=== PATIENT | female | born 1975 | race Caucasian/White ===

== ENCOUNTER 2016-12-06 19:13 | Emergency (ER) | payer OTHER ==
[~2016-12-06] VITALS: Ht 165.1 cm; Wt 133.8 kg
[~2016-12-06 19:13] MED LIST: CHANTIX0.5 MG PO; CYCLOBENZAPRINE10 MG PO; IBUPROFEN800 MG PO; LISINOPRIL20 MG PO; MELATONIN10 M2 PO; NORCO 10-325 T1 EACH PO; NORCO 5-325 TA1 EACH PO; SIMVASTATIN10 MG PO
--- NOTE | 2016-12-07 07:00 | EKG ---
[facility] [address] [facility] [place] [address] Signed Normal sinus rhythm Normal ECG No previous ECGs available Confirmed by GERMAINE MEJIA MD ([id number] on 12/07/2016 7:00:30 AM Electronically Signed By: GERMAINE MEJIA MD 12/07/16 0700 PATIENT NAME: AJIT SUÁREZ SIDNEY Electrocardiogram DATE OF : 77 PHYSICIAN: GERMAINE MEJIA MD REPORT #: [id number] REPORT IS CONFIDENTIAL AND NOT TO BE RELEASED WITHOUT AUTHORIZATION
== END 2016-12-06 21:40 | disposition home or self-care (01) ==
LOC: ED 19:13
DX: T67.5XXA Heat exhaustion, unspecified, initial encounter (principal); R00.2 Palpitations; I10 Essential (primary) hypertension; E78.00 Pure hypercholesterolemia, unspecified; F17.200 Nicotine dependence, unspecified, uncomplicated; Z88.0 Allergy status to penicillin; Z79.899 Other long term (current) drug therapy
CPT/HCPCS: 71020; 80053; 83735; 84484; 84703; 85025; 93005; 93010; 96360; 99284; J7030

== ENCOUNTER 2017-03-24 07:48 | Emergency (ER) | payer OTHER ==
[~2017-03-24] VITALS: Ht 165.1 cm; Wt 133.8 kg
[2017-03-24] MEDS ORDERED: CHANTIX1 MG PO (08:04)
[2017-03-24] MEDS ORDERED: PREDNISONE20 MG PO (10:22)
[2017-03-24] MEDS ORDERED: PROVENTIL HFA6.7 GM INH (10:22)
[2017-03-24] MEDS ORDERED: ZITHROMAX250 MG PO (10:22)
[2017-03-24] MEDS ORDERED: NICOTINE PATCH1 EAC1 TD (10:27)
== END 2017-03-24 10:45 | disposition home or self-care (01) ==
LOC: ED 07:48
DX: J20.9 Acute bronchitis, unspecified (principal); J06.9 Acute upper respiratory infection, unspecified; H65.03 Acute serous otitis media, bilateral; F17.210 Nicotine dependence, cigarettes, uncomplicated; I10 Essential (primary) hypertension; Z79.52 Long term (current) use of systemic steroids; E78.00 Pure hypercholesterolemia, unspecified; E28.2 Polycystic ovarian syndrome; Z79.899 Other long term (current) drug therapy
CPT/HCPCS: 71020; 94640; 99283; J7512

== ENCOUNTER 2021-06-09 16:55 | Emergency (ER) | payer OTHER ==
[~2021-06-09] VITALS: Ht 165.1 cm; Wt 131.5 kg
[~2021-06-09 16:55] MED LIST changes: +CHANTIX1 MG PO; +NICOTINE PATCH1 EAC1 TD; +PREDNISONE20 MG PO; +PROVENTIL HFA6.7 GM INH; +ZITHROMAX250 MG PO
[2021-06-09] MEDS ORDERED: AMOXICILLIN500 MG PO (19:42)
== END 2021-06-09 20:05 | disposition home or self-care (01) ==
LOC: ED 16:55
DX: H66.92 Otitis media, unspecified, left ear (principal); E78.00 Pure hypercholesterolemia, unspecified; I10 Essential (primary) hypertension; F17.200 Nicotine dependence, unspecified, uncomplicated; Z88.0 Allergy status to penicillin; Z79.899 Other long term (current) drug therapy
CPT/HCPCS: 99282

== ENCOUNTER 2025-02-28 15:57 | Emergency (ER) | payer OTHER, BC ==
[~2025-02-28] VITALS: Ht 165.1 cm; Wt 126.6 kg
[~2025-02-28 15:57] MED LIST changes: +AMOXICILLIN500 MG PO
[2025-02-28] MEDS ORDERED: LEXAPRO10 MG PO (17:02)
[2025-02-28] MEDS ORDERED: BUPRENORPHINE HC8 MG SL (17:03)
[2025-02-28] MEDS ORDERED: ACETAMINOPHEN 500 MG TAB PO ONE (18:45)
[2025-02-28 18:48] VITALS: BP 160/95
== END 2025-02-28 18:45 | disposition home or self-care (01) ==
LOC: ED 15:57
DX: S00.03XA Contusion of scalp, initial encounter (principal); I10 Essential (primary) hypertension; F17.200 Nicotine dependence, unspecified, uncomplicated; W18.30XA Fall on same level, unspecified, initial encounter; Y93.H1 Activity, digging, shoveling and raking
CPT/HCPCS: 70450; 99284-25; A9270